=== PATIENT | male | born 1995 | race Caucasian/White ===

== ENCOUNTER 2017-11-16 15:06 | Emergency (ER) | END 2017-11-16 18:02 | disposition home or self-care (01) ==

== ENCOUNTER 2018-01-08 15:40 | Emergency (ER) | END 2018-01-08 18:48 | disposition home or self-care (01) ==

== ENCOUNTER 2018-03-04 02:03 | Emergency (ER) | END 2018-03-04 05:48 | disposition home or self-care (01) ==

== ENCOUNTER 2018-08-02 01:26 | Emergency (ER) | payer BC ==
[~2018-08-02] VITALS: Wt 105.7 kg
[~2018-08-02 01:26] MED LIST: ACYC800T5 PO; IBUP-1542 PO; NAPR-985 PO
[2018-08-02] MEDS ORDERED: CIPROFLOXACIN 500 MG TAB PO ONE (02:30)
[2018-08-02 03:00] VITALS: BP 163/83; PULSE 77; RESP 20
--- NOTE | 2018-08-02 03:44 | ERD ---
ER Documentation Chief Complaint Chief Complaint EXPOSED TO FAMILY MEMBER WITH MENNINGITIS HPI This is a 23-year-old male who presents to the ED for prophylactic medication. Patient was recently exposed to a family member who has bacterial meningitis. Prior members currently being treated here in the ED. Patient is here for a prophylactic dose of ciprofloxacin. He denies any fevers, chills, neck stiffness, headache or changes in vision. He is otherwise acting normally and has no focal logical deficits per family. ROS All systems reviewed and are negative except as per history of present illness. Medications Home Meds Active Scripts Naproxen* (Naprosyn*) 500 Mg Tablet, 500 MG PO BID PRN for PAIN AND/OR INFLAMMATION, #30 TAB Prov:CARISA ABDI PA-C 03/04/18 Ibuprofen* (Motrin*) 600 Mg Tab, 600 MG PO Q6, #30 TAB Prov:GABRIEL HOLLINS PA-C 01/08/18 Acyclovir* (Zovirax*) 800 Mg Tablet, 800 MG PO BID for 5 Days, TAB Prov:HEATHER COOK DO 11/16/17 Allergies Allergies: Coded Allergies: No Known Allergy (Unverified , 01/08/18) PMhx/Soc History of Surgery: No Anesthesia Reaction: No Hx Neurological Disorder: No Hx Respiratory Disorders: No Hx Cardiac Disorders: No Hx Psychiatric Problems: No Hx Miscellaneous Medical Probl: No Hx Alcohol Use: No Hx Substance Use: No Hx Tobacco Use: No Smoking Status: Never smoker Physical Exam Vitals Vital Signs Date Temp Pulse Resp B/P (MAP) Pulse Ox O2 O2 Flow FiO2 Time Delivery Rate 08/02/18 98.1 80 18 162/100 99 01:31 (120) Physical Exam Const: No acute distress Head: Atraumatic Eyes: Normal Conjunctiva ENT: Normal External Ears, Nose and Mouth. Neck: Full range of motion. No meningismus. Resp: Clear to auscultation bilaterally Cardio: Regular rate and rhythm, no murmurs Skin: No petechiae or rashes Ext: No cyanosis, or edema Neuro: M/S: Alert and oriented Face: EOMI, face and pharynx with normal sensation and function Motor: Normal strength throughout Sensation: Normal sensation throughout Speech: Normal Cerebel: Normal coordination Normal gait Psych: Normal Mood and Affect Results 24 hrs Current Medications Medications Dose Sig/Cale Start Time Status Last (Trade) Ordered Route PRN Stop Time Admin Dose Reason Admin 500 mg ONCE ONCE 08/02/18 DC 08/02/18 Ciprofloxacin PO 02:30 02:11 (Cipro) 08/02/18 02:31 Procedures/MDM This is a 23-year-old male who was recently exposed to a family member who was diagnosed with bacterial versus viral meningitis. He was given a prophylactic dose of ciprofloxacin here. He has no focal neurological deficits on physical exam. He has no fever here and vital signs are normal. He has no evidence suggesting meningitis, encephalitis, or any other acute emergent process at this time. He was discharged home in stable condition. Strict return precautions were discussed. Blood Pressure Assessment: Patient's blood pressure was elevated (>120/80) but appears stable without evidence of hypertension emergency or urgency. The patient was counseled about the risks of hypertension and urged to pursue outpatient monitoring and therapy within a week with their primary care physician. Departure Diagnosis: Primary Impression: Meningitis exposure Additional Impression: Encounter for medication management Condition: Stable Patient Instructions: Bacterial Meningitis Referrals: DOCTOR,NOT ON STAFF (PCP) Additional Instructions: Call your primary care doctor TOMORROW for an appointment during the next 2-4 days and bring all the information and medications prescribed. If the symptoms get worse and your provider is unavailable, return to the Emergency Department immediately. YEMI SANTOS PA-C August 02, 2018 03:44
== END 2018-08-02 03:00 | disposition home or self-care (01) ==
LOC: FTE 01:26 → E/R 03:00
DX: Z20.811 Contact with and (suspected) exposure to meningococcus (principal)
CPT/HCPCS: 99283; Z7610